=== PATIENT | female | born 1955 | race Caucasian/White ===

== ENCOUNTER → 2020-07-07 | Outpatient (CLI) | payer BC, MEDICARE ==
[~2020-07-07] MED LIST: BUPR-168 PO; FLUT1DIS27 IH; GABA-488 PO; MELO15TA39 PO; TIOT18CA2 IH
--- NOTE | 2020-07-07 15:08 | Diagnostic Imaging Report ---
PROCEDURE: CT abdomen with contrast only. TECHNIQUE: Multiple contiguous axial images were obtained through the abdomen after the administration of intravenous contrast. Auto Exposure Controls were utilized during the CT exam to meet ALARA standards for radiation dose reduction. INDICATION: The patient reportedly has an abnormal outside study, not specified. No prior imaging is available for comparison. Imaging through the lung bases does show some linear scarring or atelectasis in the left lower lobe. The liver is upper limits of normal in size with the right lobe measuring approximately 17.4 cm. No discrete liver mass is detected. Gallbladder is unremarkable. There is no biliary ductal dilatation. The pancreas and spleen are unremarkable. Right adrenal gland is unremarkable. There is a mass involving the left adrenal gland measuring 4 cm in size. This is a mixed density with areas of low and high density as well as a potential calcification. The true adrenal washout cannot be obtained due to absence of precontrast imaging. The kidneys are unremarkable. No calculi are seen. There is no hydronephrosis. Aorta is calcified but nonaneurysmal. No central, retroperitoneal or mesenteric lymphadenopathy is seen. Small and large bowel loops are normal caliber. IMPRESSION: Mixed density mass in the left adrenal gland 4 cm in size. This could potentially represent adrenal adenoma however precontrast imaging was not performed. Either MRI of the abdomen utilizing adrenal protocol, a repeat CT with and without IV contrast or a follow-up CT in 6 months for stability could be obtained. Dictated by: Dictated on workstation # [id number]
== END ==
LOC: RAD 13:45
PROVIDERS: ATTEND Internal Medicine
DX: R93.5 Abnormal findings on diagnostic imaging of other abdominal regions, including retroperitoneum (principal)
CPT/HCPCS: 74160

== ENCOUNTER → 2020-08-08 | Outpatient (CLI) | payer MEDICARE | LOC: LABNPT 08:09 | PROVIDERS: ATTEND Orthopaedic Surgery | DX: Z20.822 Contact with and (suspected) exposure to COVID-19 (principal) | CPT/HCPCS: 87635 ==

== ENCOUNTER 2020-10-30 08:02 | Outpatient (RCR) | payer MEDICARE, OTHER ==
[2020-09-28] MEDS: DAPTOMYCIN IV SCH (13:42)
[2020-09-28] MEDS: ERTAPENEM 1 GM/NS 50 ML IVPB IV SCH ×2 (13:42)
[2020-09-28] MEDS: NS IV SCH (13:42)
[2020-09-28 13:56] VITALS: BP 122/78
[2020-09-29 09:28] VITALS: BP 123/80
[2020-09-29] MEDS: ERTAPENEM 1 GM/NS 50 ML IVPB IV SCH ×2 (09:55)
[2020-09-29] MEDS: NS IV SCH (09:55)
[2020-09-29] MEDS: DAPTOMYCIN IV SCH (09:55)
[2020-09-30] MEDS: DAPTOMYCIN IV SCH (08:49)
[2020-09-30] MEDS: NS IV SCH (08:49)
[2020-09-30] MEDS: ERTAPENEM 1 GM/NS 50 ML IVPB IV SCH ×2 (08:49)
[2020-09-30 09:20] VITALS: BP 133/88
[2020-10-01] MEDS: ERTAPENEM 1 GM/NS 50 ML IVPB IV SCH ×2 (08:33)
[2020-10-01] MEDS: DAPTOMYCIN IV SCH (08:33)
[2020-10-01] MEDS: NS IV SCH (08:33)
[2020-10-01 08:56] LABS: BASOPHILS % (AUTO) 0 % (0-10); EOSINOPHILS # (AUTO) 0.2 10^3/uL (0.0-0.3); EOSINOPHILS % (AUTO) 2 % (0-10); HEMATOCRIT 32 % (35-52); HEMOGLOBIN 9.8 g/dL (11.5-16.0); LYMPHOCYTES # (AUTO) 1.3 10^3/uL (1.0-4.0); LYMPHOCYTES % (AUTO) 13 % (12-44); MEAN CORPUSCULAR HEMOGLOBIN 30 pg (25-34); MEAN CORPUSCULAR HGB CONC 31 g/dL (32-36); MEAN CORPUSCULAR VOLUME 96 fL (80-99); MEAN PLATELET VOLUME 8.3 fL (9.0-12.2); MONOCYTES # (AUTO) 1.1 10^3/uL (0.0-1.0); MONOCYTES % (AUTO) 12 % (0-12); NEUTROPHILS # (AUTO) 6.9 10^3/uL (1.8-7.8); NEUTROPHILS % (AUTO) 72 % (42-75); PLATELET COUNT 537 10^3/uL (130-400); WHITE BLOOD COUNT 9.5 10^3/uL (4.3-11.0)
[2020-10-01 09:09] LABS: ALBUMIN 3.5 GM/DL (3.2-4.5); CHLORIDE 103 MMOL/L (98-107); POTASSIUM 3.6 MMOL/L (3.6-5.0); SODIUM 139 MMOL/L (135-145)
[2020-10-01 09:10] VITALS: BP 149/84
[2020-10-01 09:10] LABS: CALCIUM 9.3 MG/DL (8.5-10.1)
[2020-10-01 09:11] LABS: GLUCOSE 110 MG/DL (70-105); TOTAL PROTEIN 6.8 GM/DL (6.4-8.2)
[2020-10-01 09:12] LABS: CARBON DIOXIDE 27 MMOL/L (21-32)
[2020-10-01 09:13] LABS: BILIRUBIN,TOTAL 0.3 MG/DL (0.1-1.0)
[2020-10-01 09:15] LABS: ALKALINE PHOSPHATASE 104 U/L (40-136); CREATININE SERUM 0.59 MG/DL (0.60-1.30); GFR ESTIMATED > 60
[2020-10-01 09:16] LABS: BUN/CREATININE RATIO 19
[2020-10-01 09:18] LABS: ALANINE AMINOTRANSFERASE 12 U/L (0-55); CREATINE KINASE 31 U/L (29-168)
[2020-10-02 08:20] VITALS: BP 125/87
[2020-10-02] MEDS: DAPTOMYCIN IV SCH (08:44)
[2020-10-02] MEDS: NS IV SCH (08:44)
[2020-10-02] MEDS: ERTAPENEM 1 GM/NS 50 ML IVPB IV SCH ×2 (08:44)
[2020-10-03] MEDS: DAPTOMYCIN IV SCH (09:05)
[2020-10-03] MEDS: NS IV SCH (09:05)
[2020-10-03] MEDS: ERTAPENEM 1 GM/NS 50 ML IVPB IV SCH ×2 (09:05)
[2020-10-03 09:11] VITALS: BP 129/77
[2020-10-04] MEDS: DAPTOMYCIN IV SCH (08:45)
[2020-10-04] MEDS: NS IV SCH (08:45)
[2020-10-04] MEDS: ERTAPENEM 1 GM/NS 50 ML IVPB IV SCH ×2 (08:45)
[2020-10-04 09:18] VITALS: BP 117/64
[2020-10-05] MEDS: ERTAPENEM 1 GM/NS 50 ML IVPB IV SCH ×2 (08:45)
[2020-10-05] MEDS: DAPTOMYCIN IV SCH (08:45)
[2020-10-05] MEDS: NS IV SCH (08:45)
[2020-10-05 09:35] VITALS: BP 100/68
[2020-10-06] MEDS: ERTAPENEM 1 GM/NS 50 ML IVPB IV SCH ×2 (08:20)
[2020-10-06] MEDS: NS IV SCH (08:45)
[2020-10-06] MEDS: DAPTOMYCIN IV SCH (08:45)
[2020-10-06 09:06] VITALS: BP 111/67
[2020-10-07 08:30] VITALS: BP 116/84
[2020-10-07] MEDS: NS IV SCH (08:50)
[2020-10-07] MEDS: DAPTOMYCIN IV SCH (08:50)
[2020-10-07] MEDS: ERTAPENEM 1 GM/NS 50 ML IVPB IV SCH ×2 (08:50)
[2020-10-08 08:40] LABS: BASOPHILS % (AUTO) 0 % (0-10); EOSINOPHILS # (AUTO) 0.2 10^3/uL (0.0-0.3); EOSINOPHILS % (AUTO) 3 % (0-10); HEMATOCRIT 31 % (35-52); HEMOGLOBIN 9.5 g/dL (11.5-16.0); LYMPHOCYTES # (AUTO) 1.3 10^3/uL (1.0-4.0); LYMPHOCYTES % (AUTO) 18 % (12-44); MEAN CORPUSCULAR HEMOGLOBIN 29 pg (25-34); MEAN CORPUSCULAR HGB CONC 31 g/dL (32-36); MEAN CORPUSCULAR VOLUME 94 fL (80-99); MEAN PLATELET VOLUME 8.3 fL (9.0-12.2); MONOCYTES % (AUTO) 14 % (0-12); NEUTROPHILS # (AUTO) 4.8 10^3/uL (1.8-7.8); NEUTROPHILS % (AUTO) 65 % (42-75); PLATELET COUNT 446 10^3/uL (130-400); WHITE BLOOD COUNT 7.4 10^3/uL (4.3-11.0)
[2020-10-08 08:53] LABS: ALANINE AMINOTRANSFERASE 8 U/L (0-55); ALBUMIN 3.4 GM/DL (3.2-4.5); ALKALINE PHOSPHATASE 91 U/L (40-136); BILIRUBIN,TOTAL 0.2 MG/DL (0.1-1.0); BUN/CREATININE RATIO 28; CALCIUM 9.4 MG/DL (8.5-10.1); CARBON DIOXIDE 27 MMOL/L (21-32); CHLORIDE 104 MMOL/L (98-107); CREATINE KINASE 49 U/L (29-168); CREATININE SERUM 0.64 MG/DL (0.60-1.30); GFR ESTIMATED > 60; GLUCOSE 105 MG/DL (70-105); POTASSIUM 3.7 MMOL/L (3.6-5.0); SODIUM 140 MMOL/L (135-145); TOTAL PROTEIN 6.5 GM/DL (6.4-8.2)
[2020-10-08] MEDS: DAPTOMYCIN IV SCH (09:15)
[2020-10-08] MEDS: NS IV SCH (09:15)
[2020-10-08] MEDS: ERTAPENEM 1 GM/NS 50 ML IVPB IV SCH ×2 (09:15)
[2020-10-08 09:30] VITALS: BP 126/79
[2020-10-09] MEDS: NS IV SCH (08:59)
[2020-10-09] MEDS: DAPTOMYCIN IV SCH (08:59)
[2020-10-09] MEDS: ERTAPENEM 1 GM/NS 50 ML IVPB IV SCH ×2 (08:59)
[2020-10-09 09:19] VITALS: BP 133/68
[2020-10-10 09:00] VITALS: BP 114/62
[2020-10-11] MEDS: ERTAPENEM 1 GM/NS 50 ML IVPB IV SCH ×2 (09:22)
[2020-10-11] MEDS: DAPTOMYCIN IV SCH (09:22)
[2020-10-11] MEDS: NS IV SCH (09:22)
[2020-10-11 10:43] VITALS: BP 100/56
[2020-10-12] MEDS: ERTAPENEM 1 GM/NS 50 ML IVPB IV SCH ×2 (09:17)
[2020-10-12] MEDS: DAPTOMYCIN IV SCH (09:17)
[2020-10-12] MEDS: NS IV SCH (09:17)
[2020-10-13] MEDS: NS IV SCH (09:26)
[2020-10-13] MEDS: DAPTOMYCIN IV SCH (09:26)
[2020-10-13] MEDS: ERTAPENEM 1 GM/NS 50 ML IVPB IV SCH ×2 (09:26)
[2020-10-14] MEDS: ERTAPENEM 1 GM/NS 50 ML IVPB IV SCH ×2 (15:24)
[2020-10-14] MEDS: NS IV SCH (15:25)
[2020-10-14] MEDS: DAPTOMYCIN IV SCH (15:25)
[2020-10-14 15:54] VITALS: BP 126/98
[2020-10-15 10:45] VITALS: BP 107/69
[2020-10-15] MEDS: DAPTOMYCIN IV SCH (11:05)
[2020-10-15] MEDS: ERTAPENEM 1 GM/NS 50 ML IVPB IV SCH ×2 (11:05)
[2020-10-15] MEDS: NS IV SCH (11:05)
[2020-10-16] MEDS: NS IV SCH (08:59)
[2020-10-16] MEDS: ERTAPENEM 1 GM/NS 50 ML IVPB IV SCH ×2 (08:59)
[2020-10-16] MEDS: DAPTOMYCIN IV SCH (08:59)
[2020-10-16 09:35] VITALS: BP 109/77
[2020-10-16 13:08] LABS: BASOPHILS % (AUTO) 0 % (0-10); EOSINOPHILS # (AUTO) 0.4 10^3/uL (0.0-0.3); EOSINOPHILS % (AUTO) 4 % (0-10); HEMATOCRIT 33 % (35-52); HEMOGLOBIN 10.4 g/dL (11.5-16.0); LYMPHOCYTES # (AUTO) 1.7 10^3/uL (1.0-4.0); LYMPHOCYTES % (AUTO) 17 % (12-44); MEAN CORPUSCULAR HEMOGLOBIN 29 pg (25-34); MEAN CORPUSCULAR HGB CONC 32 g/dL (32-36); MEAN CORPUSCULAR VOLUME 92 fL (80-99); MEAN PLATELET VOLUME 8.4 fL (9.0-12.2); MONOCYTES # (AUTO) 1.2 10^3/uL (0.0-1.0); MONOCYTES % (AUTO) 12 % (0-12); NEUTROPHILS # (AUTO) 6.7 10^3/uL (1.8-7.8); NEUTROPHILS % (AUTO) 66 % (42-75); PLATELET COUNT 523 10^3/uL (130-400); WHITE BLOOD COUNT 10.1 10^3/uL (4.3-11.0)
[2020-10-16 13:22] LABS: ALBUMIN 3.7 GM/DL (3.2-4.5)
[2020-10-16 13:23] LABS: CHLORIDE 103 MMOL/L (98-107); SODIUM 139 MMOL/L (135-145)
[2020-10-16 13:24] LABS: CALCIUM 9.6 MG/DL (8.5-10.1)
[2020-10-16 13:25] LABS: GLUCOSE 89 MG/DL (70-105); TOTAL PROTEIN 6.8 GM/DL (6.4-8.2)
[2020-10-16 13:26] LABS: CARBON DIOXIDE 25 MMOL/L (21-32)
[2020-10-16 13:27] LABS: BILIRUBIN,TOTAL 0.2 MG/DL (0.1-1.0)
[2020-10-16 13:28] LABS: ALKALINE PHOSPHATASE 89 U/L (40-136)
[2020-10-16 13:29] LABS: CREATININE SERUM 0.64 MG/DL (0.60-1.30); GFR ESTIMATED > 60
[2020-10-16 13:30] LABS: BUN/CREATININE RATIO 22
[2020-10-16 13:32] LABS: ALANINE AMINOTRANSFERASE 9 U/L (0-55); CREATINE KINASE 90 U/L (29-168)
[2020-10-17 09:22] VITALS: BP 123/99
[2020-10-17] MEDS: DAPTOMYCIN IV SCH (09:22)
[2020-10-17] MEDS: ERTAPENEM 1 GM/NS 50 ML IVPB IV SCH ×2 (09:22)
[2020-10-17] MEDS: NS IV SCH (09:22)
[2020-10-18] MEDS: ERTAPENEM 1 GM/NS 50 ML IVPB IV SCH ×2 (08:45)
[2020-10-18] MEDS: DAPTOMYCIN IV SCH (08:45)
[2020-10-18] MEDS: NS IV SCH (08:45)
[2020-10-18 09:20] VITALS: BP 129/97
[2020-10-19] MEDS: NS IV SCH (08:47)
[2020-10-19] MEDS: DAPTOMYCIN IV SCH (08:47)
[2020-10-19] MEDS: ERTAPENEM 1 GM/NS 50 ML IVPB IV SCH ×2 (08:50)
[2020-10-19 09:24] VITALS: BP 120/78
[2020-10-20] MEDS: NS IV SCH (08:37)
[2020-10-20] MEDS: DAPTOMYCIN IV SCH (08:37)
[2020-10-20] MEDS: ERTAPENEM 1 GM/NS 50 ML IVPB IV SCH ×2 (08:38)
[2020-10-20 09:22] VITALS: BP 118/80
[2020-10-21] MEDS: NS IV SCH (09:16)
[2020-10-21] MEDS: DAPTOMYCIN IV SCH (09:16)
[2020-10-21] MEDS: ERTAPENEM 1 GM/NS 50 ML IVPB IV SCH ×2 (09:17)
[2020-10-21 09:25] VITALS: BP 119/73
[2020-10-22 08:43] LABS: BASOPHILS # (AUTO) 0.1 10^3/uL (0.0-0.1); BASOPHILS % (AUTO) 1 % (0-10); EOSINOPHILS # (AUTO) 0.2 10^3/uL (0.0-0.3); EOSINOPHILS % (AUTO) 2 % (0-10); HEMATOCRIT 33 % (35-52); HEMOGLOBIN 10.1 g/dL (11.5-16.0); LYMPHOCYTES # (AUTO) 1.5 10^3/uL (1.0-4.0); LYMPHOCYTES % (AUTO) 19 % (12-44); MEAN CORPUSCULAR HEMOGLOBIN 28 pg (25-34); MEAN CORPUSCULAR HGB CONC 31 g/dL (32-36); MEAN CORPUSCULAR VOLUME 92 fL (80-99); MEAN PLATELET VOLUME 8.3 fL (9.0-12.2); MONOCYTES # (AUTO) 0.9 10^3/uL (0.0-1.0); MONOCYTES % (AUTO) 12 % (0-12); NEUTROPHILS % (AUTO) 65 % (42-75); PLATELET COUNT 510 10^3/uL (130-400); WHITE BLOOD COUNT 7.6 10^3/uL (4.3-11.0)
[2020-10-22] MEDS: NS IV SCH (08:47)
[2020-10-22] MEDS: ERTAPENEM 1 GM/NS 50 ML IVPB IV SCH ×2 (08:47)
[2020-10-22] MEDS: DAPTOMYCIN IV SCH (08:47)
[2020-10-22 09:01] LABS: ALANINE AMINOTRANSFERASE 11 U/L (0-55); ALBUMIN 3.6 GM/DL (3.2-4.5); ALKALINE PHOSPHATASE 87 U/L (40-136); BILIRUBIN,TOTAL 0.2 MG/DL (0.1-1.0); BUN/CREATININE RATIO 26; CALCIUM 9.6 MG/DL (8.5-10.1); CARBON DIOXIDE 25 MMOL/L (21-32); CHLORIDE 104 MMOL/L (98-107); CREATINE KINASE 87 U/L (29-168); CREATININE SERUM 0.66 MG/DL (0.60-1.30); GFR ESTIMATED > 60; GLUCOSE 101 MG/DL (70-105); POTASSIUM 4.1 MMOL/L (3.6-5.0); SODIUM 138 MMOL/L (135-145); TOTAL PROTEIN 6.9 GM/DL (6.4-8.2)
[2020-10-22 09:20] VITALS: BP 127/75
[2020-10-23] MEDS: DAPTOMYCIN IV SCH (08:24)
[2020-10-23] MEDS: NS IV SCH (08:24)
[2020-10-23] MEDS: ERTAPENEM 1 GM/NS 50 ML IVPB IV SCH ×2 (08:24)
[2020-10-23 09:00] VITALS: BP 113/63
[2020-10-24] MEDS: DAPTOMYCIN IV SCH (08:30)
[2020-10-24] MEDS: ERTAPENEM 1 GM/NS 50 ML IVPB IV SCH ×2 (08:30)
[2020-10-24] MEDS: NS IV SCH (08:30)
[2020-10-24 08:32] VITALS: BP 100/66
[2020-10-25 09:15] VITALS: BP 101/78
[2020-10-25] MEDS: ERTAPENEM 1 GM/NS 50 ML IVPB IV SCH ×2 (09:46)
[2020-10-25] MEDS: DAPTOMYCIN IV SCH (09:46)
[2020-10-25] MEDS: NS IV SCH (09:46)
[2020-10-26] MEDS: DAPTOMYCIN IV SCH (09:22)
[2020-10-26] MEDS: NS IV SCH (09:22)
[2020-10-26] MEDS: ERTAPENEM 1 GM/NS 50 ML IVPB IV SCH ×2 (09:23)
[2020-10-26 09:30] VITALS: BP 111/76
[2020-10-27] MEDS: NS IV SCH (08:12)
[2020-10-27] MEDS: ERTAPENEM 1 GM/NS 50 ML IVPB IV SCH ×2 (08:12)
[2020-10-27] MEDS: DAPTOMYCIN IV SCH (08:12)
[2020-10-27 08:43] VITALS: BP 133/82
[2020-10-28] MEDS: NS IV SCH (08:13)
[2020-10-28] MEDS: DAPTOMYCIN IV SCH (08:13)
[2020-10-28] MEDS: ERTAPENEM 1 GM/NS 50 ML IVPB IV SCH ×2 (08:14)
[2020-10-28 09:05] VITALS: BP 120/77
[2020-10-29] MEDS: ERTAPENEM 1 GM/NS 50 ML IVPB IV SCH ×2 (08:43)
[2020-10-29] MEDS: NS IV SCH (08:43)
[2020-10-29] MEDS: DAPTOMYCIN IV SCH (08:43)
[2020-10-29 08:48] LABS: BASOPHILS % (AUTO) 0 % (0-10); EOSINOPHILS # (AUTO) 0.2 10^3/uL (0.0-0.3); EOSINOPHILS % (AUTO) 3 % (0-10); HEMATOCRIT 33 % (35-52); HEMOGLOBIN 10.3 g/dL (11.5-16.0); LYMPHOCYTES # (AUTO) 1.4 10^3/uL (1.0-4.0); LYMPHOCYTES % (AUTO) 18 % (12-44); MEAN CORPUSCULAR HEMOGLOBIN 29 pg (25-34); MEAN CORPUSCULAR HGB CONC 31 g/dL (32-36); MEAN CORPUSCULAR VOLUME 91 fL (80-99); MEAN PLATELET VOLUME 8.3 fL (9.0-12.2); MONOCYTES # (AUTO) 0.9 10^3/uL (0.0-1.0); MONOCYTES % (AUTO) 11 % (0-12); NEUTROPHILS # (AUTO) 5.1 10^3/uL (1.8-7.8); NEUTROPHILS % (AUTO) 67 % (42-75); PLATELET COUNT 445 10^3/uL (130-400); WHITE BLOOD COUNT 7.6 10^3/uL (4.3-11.0)
[2020-10-29 08:54] VITALS: BP 127/70
[2020-10-29 09:04] LABS: ALANINE AMINOTRANSFERASE 10 U/L (0-55); ALBUMIN 3.6 GM/DL (3.2-4.5); ALKALINE PHOSPHATASE 77 U/L (40-136); BILIRUBIN,TOTAL 0.2 MG/DL (0.1-1.0); BUN/CREATININE RATIO 32; CALCIUM 9.4 MG/DL (8.5-10.1); CARBON DIOXIDE 24 MMOL/L (21-32); CHLORIDE 105 MMOL/L (98-107); CREATINE KINASE 81 U/L (29-168); CREATININE SERUM 0.62 MG/DL (0.60-1.30); GFR ESTIMATED > 60; GLUCOSE 100 MG/DL (70-105); POTASSIUM 3.9 MMOL/L (3.6-5.0); SODIUM 139 MMOL/L (135-145); TOTAL PROTEIN 6.8 GM/DL (6.4-8.2)
[~2020-10-30] VITALS: Ht 162.6 cm; Wt 87.7 kg
[2020-10-30] MEDS: DAPTOMYCIN IV SCH (08:27)
[2020-10-30] MEDS: NS IV SCH (08:27)
[2020-10-30] MEDS: ERTAPENEM 1 GM/NS 50 ML IVPB IV SCH ×2 (08:27)
[2020-10-30 09:12] VITALS: BP 125/67
== END 2020-10-30 09:12 | disposition home or self-care (01) ==
LOC: SDC 08:02
PROVIDERS: ATTEND Nurse Practitioner Family
DX: T81.30XA Disruption of wound, unspecified, initial encounter (principal)
CPT/HCPCS: 36415; 80053; 82550; 85025; 93005; 96365; 96367; 96368; 99211

== ENCOUNTER 2020-11-19 09:07 | Outpatient (RCR) | payer MEDICARE, OTHER ==
[2020-11-19 09:27] LABS: BASOPHILS % (AUTO) 0 % (0-10); EOSINOPHILS # (AUTO) 0.1 10^3/uL (0.0-0.3); EOSINOPHILS % (AUTO) 2 % (0-10); HEMATOCRIT 38 % (35-52); HEMOGLOBIN 11.6 g/dL (11.5-16.0); LYMPHOCYTES # (AUTO) 1.3 10^3/uL (1.0-4.0); LYMPHOCYTES % (AUTO) 15 % (12-44); MEAN CORPUSCULAR HEMOGLOBIN 28 pg (25-34); MEAN CORPUSCULAR HGB CONC 31 g/dL (32-36); MEAN CORPUSCULAR VOLUME 92 fL (80-99); MEAN PLATELET VOLUME 8.5 fL (9.0-12.2); MONOCYTES # (AUTO) 0.9 10^3/uL (0.0-1.0); MONOCYTES % (AUTO) 11 % (0-12); NEUTROPHILS # (AUTO) 6.3 10^3/uL (1.8-7.8); NEUTROPHILS % (AUTO) 72 % (42-75); PLATELET COUNT 405 10^3/uL (130-400); WHITE BLOOD COUNT 8.8 10^3/uL (4.3-11.0)
[2020-11-19 09:48] LABS: ALANINE AMINOTRANSFERASE 16 U/L (0-55); ALBUMIN 3.9 GM/DL (3.2-4.5); ALKALINE PHOSPHATASE 74 U/L (40-136); BILIRUBIN,TOTAL 0.3 MG/DL (0.1-1.0); BUN/CREATININE RATIO 28; CALCIUM 9.6 MG/DL (8.5-10.1); CARBON DIOXIDE 26 MMOL/L (21-32); CHLORIDE 103 MMOL/L (98-107); CREATININE SERUM 0.64 MG/DL (0.60-1.30); GFR ESTIMATED > 60; GLUCOSE 105 MG/DL (70-105); POTASSIUM 4.4 MMOL/L (3.6-5.0); SODIUM 137 MMOL/L (135-145)
[2020-11-19 09:53] LABS: ERYTHROCYTE SEDIMENTATION RATE 33 MM/HR (0-30)
== END 2021-02-17 | disposition home or self-care (01) ==
LOC: CARD 09:07
PROVIDERS: ATTEND Internal Medicine Infectious Disease
DX: T81.30XA Disruption of wound, unspecified, initial encounter (principal); Z79.899 Other long term (current) drug therapy
CPT/HCPCS: 36415; 80053; 85025; 85652; 86141; 93005

== ENCOUNTER → 2020-11-26 | Outpatient (CLI) | payer MEDICARE, OTHER ==
[2020-11-26 11:22] LABS: BASOPHILS % (AUTO) 1 % (0-10); EOSINOPHILS # (AUTO) 0.1 10^3/uL (0.0-0.3); EOSINOPHILS % (AUTO) 2 % (0-10); HEMATOCRIT 38 % (35-52); HEMOGLOBIN 12.1 g/dL (11.5-16.0); LYMPHOCYTES # (AUTO) 1.4 X 10^3 (1.0-4.0); LYMPHOCYTES % (AUTO) 15 % (12-44); MEAN CORPUSCULAR HEMOGLOBIN 29 pg (25-34); MEAN CORPUSCULAR HGB CONC 32 g/dL (32-36); MEAN CORPUSCULAR VOLUME 92 fL (80-99); MEAN PLATELET VOLUME 8.6 fL (9.0-12.2); MONOCYTES # (AUTO) 0.8 X 10^3 (0.0-1.0); MONOCYTES % (AUTO) 9 % (0-12); NEUTROPHILS # (AUTO) 6.5 X 10^3 (1.8-7.8); NEUTROPHILS % (AUTO) 73 % (42-75); PLATELET COUNT 413 10^3/uL (130-400); WHITE BLOOD COUNT 8.8 10^3/uL (4.3-11.0)
[2020-11-26 11:49] LABS: ERYTHROCYTE SEDIMENTATION RATE 36 MM/HR (0-30)
[2020-11-26 11:51] LABS: ALANINE AMINOTRANSFERASE 14 U/L (0-55); ALBUMIN 4.1 GM/DL (3.2-4.5); ALKALINE PHOSPHATASE 69 U/L (40-136); BILIRUBIN,TOTAL 0.3 MG/DL (0.1-1.0); BUN/CREATININE RATIO 26; CALCIUM 9.4 MG/DL (8.5-10.1); CARBON DIOXIDE 24 MMOL/L (21-32); CHLORIDE 105 MMOL/L (98-107); CREATININE SERUM 0.76 MG/DL (0.60-1.30); GFR ESTIMATED > 60; GLUCOSE 103 MG/DL (70-105); SODIUM 138 MMOL/L (135-145); TOTAL PROTEIN 7.3 GM/DL (6.4-8.2)
== END ==
LOC: RAD 10:57
PROVIDERS: ATTEND Internal Medicine Infectious Disease
DX: T81.30XA Disruption of wound, unspecified, initial encounter (principal); Z79.899 Other long term (current) drug therapy
CPT/HCPCS: 36415; 80053; 85025; 85652; 86141; 93005

== ENCOUNTER → 2020-12-29 | Outpatient (CLI) | payer MEDICARE, OTHER ==
[2020-12-29 13:18] LABS: BASOPHILS % (AUTO) 0 % (0-10); EOSINOPHILS # (AUTO) 0.1 10^3/uL (0.0-0.3); EOSINOPHILS % (AUTO) 2 % (0-10); HEMATOCRIT 40 % (35-52); HEMOGLOBIN 12.7 g/dL (11.5-16.0); LYMPHOCYTES # (AUTO) 2.1 10^3/uL (1.0-4.0); LYMPHOCYTES % (AUTO) 24 % (12-44); MEAN CORPUSCULAR HEMOGLOBIN 30 pg (25-34); MEAN CORPUSCULAR HGB CONC 32 g/dL (32-36); MEAN CORPUSCULAR VOLUME 92 fL (80-99); MEAN PLATELET VOLUME 8.7 fL (9.0-12.2); MONOCYTES # (AUTO) 0.8 10^3/uL (0.0-1.0); MONOCYTES % (AUTO) 10 % (0-12); NEUTROPHILS # (AUTO) 5.4 10^3/uL (1.8-7.8); NEUTROPHILS % (AUTO) 64 % (42-75); PLATELET COUNT 379 10^3/uL (130-400); WHITE BLOOD COUNT 8.5 10^3/uL (4.3-11.0)
[2020-12-29 13:26] LABS: ALBUMIN 4.1 GM/DL (3.2-4.5); POTASSIUM 3.9 MMOL/L (3.6-5.0)
[2020-12-29 13:28] LABS: CALCIUM 9.9 MG/DL (8.5-10.1)
[2020-12-29 13:29] LABS: TOTAL PROTEIN 7.2 GM/DL (6.4-8.2)
[2020-12-29 13:31] LABS: BILIRUBIN,TOTAL 0.4 MG/DL (0.1-1.0)
[2020-12-29 13:33] LABS: CREATININE SERUM 0.65 MG/DL (0.60-1.30)
[2020-12-29 13:52] LABS: ERYTHROCYTE SEDIMENTATION RATE 37 MM/HR (0-30)
== END ==
LOC: CARD 13:00
PROVIDERS: ATTEND Internal Medicine Infectious Disease
DX: T81.30XA Disruption of wound, unspecified, initial encounter (principal); Z79.899 Other long term (current) drug therapy
CPT/HCPCS: 36415; 80053; 85025; 85652; 86141; 93005

== ENCOUNTER → 2021-02-02 | Outpatient (CLI) | payer MEDICARE, OTHER ==
[2021-02-02 10:33] LABS: BASOPHILS % (AUTO) 1 % (0-10); EOSINOPHILS # (AUTO) 0.2 10^3/uL (0.0-0.3); EOSINOPHILS % (AUTO) 2 % (0-10); HEMATOCRIT 38 % (35-52); HEMOGLOBIN 12.4 g/dL (11.5-16.0); LYMPHOCYTES # (AUTO) 1.5 10^3/uL (1.0-4.0); LYMPHOCYTES % (AUTO) 18 % (12-44); MEAN CORPUSCULAR HEMOGLOBIN 31 pg (25-34); MEAN CORPUSCULAR HGB CONC 33 g/dL (32-36); MEAN CORPUSCULAR VOLUME 94 fL (80-99); MEAN PLATELET VOLUME 8.6 fL (9.0-12.2); MONOCYTES # (AUTO) 0.8 10^3/uL (0.0-1.0); MONOCYTES % (AUTO) 10 % (0-12); NEUTROPHILS # (AUTO) 5.6 10^3/uL (1.8-7.8); NEUTROPHILS % (AUTO) 69 % (42-75); PLATELET COUNT 319 10^3/uL (130-400); WHITE BLOOD COUNT 8.2 10^3/uL (4.3-11.0)
[2021-02-02 10:44] LABS: CALCIUM 9.4 MG/DL (8.5-10.1)
[2021-02-02 10:45] LABS: TOTAL PROTEIN 6.8 GM/DL (6.4-8.2)
[2021-02-02 10:47] LABS: BILIRUBIN,TOTAL 0.3 MG/DL (0.1-1.0)
[2021-02-02 10:49] LABS: CREATININE SERUM 0.75 MG/DL (0.60-1.30)
[2021-02-02 11:13] LABS: ERYTHROCYTE SEDIMENTATION RATE 28 MM/HR (0-30)
== END ==
LOC: RAD 10:06
PROVIDERS: ATTEND Internal Medicine Infectious Disease
DX: T81.30XA Disruption of wound, unspecified, initial encounter (principal); Z79.899 Other long term (current) drug therapy
CPT/HCPCS: 36415; 80053; 85025; 85027; 85652; 86141; 93005

== ENCOUNTER 2021-03-05 12:40 | Outpatient (RCR) | payer MEDICARE, OTHER ==
[2021-03-05 12:42] LABS: BASOPHILS % (AUTO) 0 % (0-10); EOSINOPHILS # (AUTO) 0.2 10^3/uL (0.0-0.3); EOSINOPHILS % (AUTO) 2 % (0-10); HEMATOCRIT 42 % (35-52); HEMOGLOBIN 13.7 g/dL (11.5-16.0); LYMPHOCYTES # (AUTO) 2.1 10^3/uL (1.0-4.0); LYMPHOCYTES % (AUTO) 25 % (12-44); MEAN CORPUSCULAR HEMOGLOBIN 31 pg (25-34); MEAN CORPUSCULAR HGB CONC 33 g/dL (32-36); MEAN CORPUSCULAR VOLUME 95 fL (80-99); MEAN PLATELET VOLUME 8.4 fL (9.0-12.2); MONOCYTES # (AUTO) 0.7 10^3/uL (0.0-1.0); MONOCYTES % (AUTO) 8 % (0-12); NEUTROPHILS # (AUTO) 5.3 10^3/uL (1.8-7.8); NEUTROPHILS % (AUTO) 65 % (42-75); PLATELET COUNT 349 10^3/uL (130-400); WHITE BLOOD COUNT 8.3 10^3/uL (4.3-11.0)
[2021-03-05 12:56] LABS: ALBUMIN 4.1 GM/DL (3.2-4.5); POTASSIUM 3.8 MMOL/L (3.6-5.0)
[2021-03-05 12:57] LABS: CALCIUM 9.8 MG/DL (8.5-10.1)
[2021-03-05 13:00] LABS: BILIRUBIN,TOTAL 0.4 MG/DL (0.1-1.0)
[2021-03-05 13:02] LABS: CREATININE SERUM 0.64 MG/DL (0.60-1.30)
[2021-03-05 13:04] LABS: ERYTHROCYTE SEDIMENTATION RATE 11 MM/HR (0-30)
== END 2021-05-15 | disposition home or self-care (01) ==
LOC: CARD 12:40
PROVIDERS: ATTEND Internal Medicine Infectious Disease
DX: T81.30XA Disruption of wound, unspecified, initial encounter (principal); Z79.899 Other long term (current) drug therapy
CPT/HCPCS: 36415; 80053; 85025; 85652; 86141; 93005

== ENCOUNTER 2021-03-23 07:38 | Emergency (ER) | payer MEDICARE, OTHER ==
[~2021-03-23] VITALS: Ht 160 cm; Wt 90.0 kg
--- NOTE | 2021-03-23 07:58 | ED General ---
General Stated Complaint: DIZZINESS Source of Information: Patient Exam Limitations: No Limitations History of Present Illness Date Seen by Provider: Mar 23, 2021 Time Seen by Provider: 07:43 Initial Comments Patient is a 65-year-old female who presents to the emergency department today with a chief complaint of feeling "dizzy". Patient states that she woke up at some point during the middle of the night and realized that she was very dizzy and was concerned she might fall. She states symptoms persisted throughout the morning and she called the ambulance to bring her to the hospital. Patient is status post fairly recent back surgery at and developed a deep wound infection afterwards and is on 3 "powerful" antibiotics per infectious disease from . Patient states she has been battling some diarrhea in recent weeks as well as developed oral thrush last week. She is currently on nystatin. Patient states the thrush is improved and now that she is taking her probiotics her diarrhea is improved. Patient states she was tested for C. difficile and was negative. She denies any black or bloody stools. No fevers, chills, cough or congestion or Covid concerns. She has no history of cardiac abnormalities. She did have a "cardiac clearance" prior to her back surgery. She is not nauseous and states that she has minimal headache at this point. She states her symptoms are predominantly occurring when she sits up and gets up. No urinary complaints. All other review of systems reviewed and negative except as stated. Timing/Duration: 12-24 Hours Severity: Moderate Modifying Factors: worse with Movement Associated Systoms: Nausea/Vomiting (mild nausea with dizziness) Allergies and Home Medications Allergies Coded Allergies: tramadol (Verified Allergy, Mild, Vomiting, 10/18/20) codeine (Verified Allergy, Unknown, 09/28/20) Patient Home Medication List Home Medication List Reviewed: Yes Bupropion HCl (Bupropion HCl) 75 Mg Tablet, 75 MG PO DAILY, (Reported) Entered as Reported by: SAVANAH VIERA on 05/09/16 0916 Fluticasone/Salmeterol (Advair 500-50 Diskus) 1 Each Blst.w.dev, 1 EACH IH BID, (Reported) Entered as Reported by: SAVANAH VIERA on 05/09/16 0914 Gabapentin (Gabapentin) 300 Mg Capsule, Unknown Dose PO TID, (Reported) Entered as Reported by: SAVANAH VIERA on 05/09/16915 Meloxicam (Meloxicam) 15 Mg Tablet, 15 MG PO DAILY, (Reported) Entered as Reported by: SAVANAH VIERA on 05/09/16915 Tiotropium [place] (Spiriva) 1 Inh Aerp, 1 INH IH BID, (Reported) Entered as Reported by: SAVANAH VIERA on 05/09/16913 Review of Systems Review of Systems Constitutional: see HPI EENTM: other (oral thrush) Respiratory: no symptoms reported Cardiovascular: no symptoms reported Gastrointestinal: diarrhea, nausea (mild) Genitourinary: no symptoms reported : No Musculoskeletal: no symptoms reported Skin: no symptoms reported Psychiatric/Neurological: Headache (mininmal); Denies Numbness, Denies Paresthesia, Denies Weakness All Other Systems Reviewed Negative Unless Noted: Yes Physical Exam Vital Signs Vital Signs - First Documented 03/23/21 07:43 Temp 36.6 Pulse 68 Resp 18 B/P (MAP) 143/76 (98) Pulse Ox 99 Capillary Refill : Height, Weight, BMI Height: 5'4" Weight: 250lbs. oz. [id number]; 33.17 BMI Method:Stated General Appearance: No Apparent Distress Eyes: Bilateral Eye Normal Inspection, Bilateral Eye PERRL, Bilateral Eye EOMI HEENT: PERRL/EOMI, TMs Normal, Other (oral thrush (left buccal mucosa)) Neck: Normal Inspection Respiratory: Lungs Clear, Normal Breath Sounds, No Accessory Muscle Use, No Respiratory Distress Cardiovascular: Regular Rate, Rhythm, No Murmur, Normal Peripheral Pulses, Extra Beats Gastrointestinal: Normal Bowel Sounds, Non Tender, Soft Extremity: Normal Inspection, Normal Range of Motion Neurologic/Psychiatric: Alert, Oriented x3, No Motor/Sensory Deficits, Normal Mood/Affect, screed person II-XII Norm as Tested; No Abnormal Cerebellar Tests, No EOM Palsy, No Facial Droop, No Motor Weakness, No Sensory Deficit; Other (no nystagmus noted) Skin: Normal Color, Warm/Dry Progress/Results/Core Measures Suspected Sepsis SIRS Temperature: Pulse: Respiratory Rate: Laboratory Tests 03/23/21 08:00: White Blood Count 5.6 Blood Pressure / Mean: Laboratory Tests 03/23/21 08:00: Creatinine 0.64, Platelet Count 318 Results/Orders Lab Results Laboratory Tests Test 03/23/21 08:00 Range/Units White Blood Count 5.6 4.3-11.0 10^3/uL Red Blood Count 4.41 3.80-5.11 10^6/uL Hemoglobin 14.0 11.5-16.0 g/dL Hematocrit 42 35-52 % Mean Corpuscular Volume 96 80-99 fL Mean Corpuscular Hemoglobin 32 25-34 pg Mean Corpuscular Hemoglobin Concent 33 32-36 g/dL Red Cell Distribution Width 13.4 10.0-14.5 % Platelet Count 318 130-400 10^3/uL Mean Platelet Volume 8.9 L 9.0-12.2 fL Immature Granulocyte % (Auto) 1 % Neutrophils (%) (Auto) 60 42-75 % Lymphocytes (%) (Auto) 25 12-44 % Monocytes (%) (Auto) 11 0-12 % Eosinophils (%) (Auto) 2 0-10 % Basophils (%) (Auto) 1 0-10 % Neutrophils # (Auto) 3.4 1.8-7.8 10^3/uL Lymphocytes # (Auto) 1.4 1.0-4.0 10^3/uL Monocytes # (Auto) 0.6 0.0-1.0 10^3/uL Eosinophils # (Auto) 0.1 0.0-0.3 10^3/uL Basophils # (Auto) 0.0 0.0-0.1 10^3/uL Immature Granulocyte # (Auto) 0.0 0.0-0.1 10^3/uL Sodium Level 138 135-145 MMOL/L Potassium Level 5.2 H 3.6-5.0 MMOL/L Chloride Level 106 98-107 MMOL/L Carbon Dioxide Level 20 L 21-32 MMOL/L Anion Gap 12 5-14 MMOL/L Blood Urea Nitrogen 20 H 7-18 MG/DL Creatinine 0.64 0.60-1.30 MG/DL Estimat Glomerular Filtration Rate 93 BUN/Creatinine Ratio 31 Glucose Level 110 H 70-105 MG/DL Calcium Level 9.3 8.5-10.1 MG/DL My Orders Orders - LASHAWN ABBASI MD Cbc With Automated Diff (03/23/21 07:52) Basic Metabolic Panel (03/23/21 07:52) Ekg Tracing (03/23/21 07:52) Ed Iv/Invasive Line Start (03/23/21 07:52) Orthostatic Vital Signs (Adult (03/23/21 07:52) Meclizine Tablet (Antivert Tablet) (03/23/21 08:15) Ns Iv 1000 Ml (Sodium Chloride 0.9%) (03/23/21 08:06) Acetaminophen Tablet (Tylenol Tablet) (03/23/21 09:15) Ns Iv 1000 Ml (Sodium Chloride 0.9%) (03/23/21 09:15) Medications Given in ED Current Medications Medications Dose Ordered Sig/Ivy Route Start Time Stop Time Status Last Admin Dose Admin Acetaminophen 1,000 mg ONCE ONCE PO 03/23/21 09:15 03/23/21 09:16 DC 03/23/21 09:08 1,000 MG Meclizine HCl 25 mg ONCE ONCE PO 03/23/21 08:15 03/23/21 08:16 DC 03/23/21 08:15 25 MG Vital Signs/I&O 03/23/21 03/23/21 07:43 08:00 Temp 36.6 Pulse 68 65 67 Resp 18 B/P (MAP) 143/76 (98) 143/74 (97) 165/104 (124) Pulse Ox 99 Capillary Refill : Progress Note : Time: 09:00 Progress Note Patient re-evaluated after meclizine and about 900cc of first liter of fluids, she is able to sit up without much problem and says that she feels SO MUCH better. Has a slight headache but severe dizziness is resolved. WIll go ahead and order a second liter of fluids - as her CO2 on her chem was depressed at 20, and I suspect a fair amount of dehydration due to the recent robert with diarrhea. SHe is comfortable with this plan of care. Has a follow up with her PCP later in the week. ECG Initial ECG Impression Date: Mar 23, 2021 Initial ECG Impression Time: 07:57 Initial ECG Rate: 62 Initial ECG Intervals ID [id number] QRS 108 QTc 453 Initial ECG Impression: Normal, Nonspecific Changes Departure Impression Primary Impression: Dizziness Additional Impression: Dehydration, moderate Disposition: 01 HOME, SELF-CARE Condition: Stable Departure-Patient Inst. Decision time for Depature: 09:04 Referrals: BUTCH RODRÍGUEZ MD (PCP/Family) Primary Care Physician Patient Instructions: Dizziness, Adult ED Add. Discharge Instructions: Drink plenty of fluids to stay well hydrated. Continue your daily medications as prescribed (including your nystatin). Keep your follow up with your primary care provider this week. Come back to the Emergency Department for any new, concerning or emergent complaints. LASHAWN ABBASI MD Mar 23, 2021 07:58
[2021-03-23 08:00] VITALS: BP_SYST 143; BP_SYST 165; BP_DIAS 104; BP_DIAS 74
[2021-03-23] MEDS ORDERED: NS IV 1000 ML 1,000 ML IV STA (08:06)
[2021-03-23 08:10] LABS: BASOPHILS % (AUTO) 1 % (0-10); EOSINOPHILS # (AUTO) 0.1 10^3/uL (0.0-0.3); EOSINOPHILS % (AUTO) 2 % (0-10); HEMATOCRIT 42 % (35-52); LYMPHOCYTES # (AUTO) 1.4 10^3/uL (1.0-4.0); LYMPHOCYTES % (AUTO) 25 % (12-44); MEAN CORPUSCULAR HEMOGLOBIN 32 pg (25-34); MEAN CORPUSCULAR HGB CONC 33 g/dL (32-36); MEAN CORPUSCULAR VOLUME 96 fL (80-99); MEAN PLATELET VOLUME 8.9 fL (9.0-12.2); MONOCYTES # (AUTO) 0.6 10^3/uL (0.0-1.0); MONOCYTES % (AUTO) 11 % (0-12); NEUTROPHILS # (AUTO) 3.4 10^3/uL (1.8-7.8); NEUTROPHILS % (AUTO) 60 % (42-75); PLATELET COUNT 318 10^3/uL (130-400); WHITE BLOOD COUNT 5.6 10^3/uL (4.3-11.0)
[2021-03-23] MEDS ORDERED: MECLIZINE 25 MG (ANTIVERT) TAB PO ONE (08:15)
[2021-03-23 08:21] LABS: CALCIUM 9.3 MG/DL (8.5-10.1)
[2021-03-23 08:25] LABS: CREATININE SERUM 0.64 MG/DL (0.60-1.30)
[2021-03-23 08:33] LABS: POTASSIUM 5.2 MMOL/L (3.6-5.0)
[2021-03-23] MEDS ORDERED: ACETAMINOPHEN 500 MG TAB (TYLENOL) PO ONE (09:15)
[2021-03-23] MEDS ORDERED: NS IV 1000 ML 1,000 ML IV SCH (09:15)
[2021-03-23 10:01] VITALS: BP 148/78
== END 2021-03-23 11:18 | disposition home or self-care (01) ==
LOC: EDUNIT# 07:38 → ER 07:41
DX: R42 Dizziness and giddiness (principal); E86.0 Dehydration
CPT/HCPCS: 36415; 80048; 85025; 93005

== ENCOUNTER 2021-04-14 09:44 | Outpatient (RCR) | payer MEDICARE, OTHER ==
[2021-04-14 10:07] LABS: BASOPHILS % (AUTO) 0 % (0-10); EOSINOPHILS # (AUTO) 0.1 10^3/uL (0.0-0.3); EOSINOPHILS % (AUTO) 2 % (0-10); HEMATOCRIT 42 % (35-52); HEMOGLOBIN 13.8 g/dL (11.5-16.0); LYMPHOCYTES # (AUTO) 1.4 10^3/uL (1.0-4.0); LYMPHOCYTES % (AUTO) 19 % (12-44); MEAN CORPUSCULAR HEMOGLOBIN 32 pg (25-34); MEAN CORPUSCULAR HGB CONC 33 g/dL (32-36); MEAN CORPUSCULAR VOLUME 95 fL (80-99); MEAN PLATELET VOLUME 8.5 fL (9.0-12.2); MONOCYTES % (AUTO) 14 % (0-12); NEUTROPHILS # (AUTO) 4.6 10^3/uL (1.8-7.8); NEUTROPHILS % (AUTO) 65 % (42-75); PLATELET COUNT 321 10^3/uL (130-400); WHITE BLOOD COUNT 7.1 10^3/uL (4.3-11.0)
[2021-04-14 10:24] LABS: ERYTHROCYTE SEDIMENTATION RATE 13 MM/HR (0-30)
[2021-04-14 10:32] LABS: ALBUMIN 4.1 GM/DL (3.2-4.5); BILIRUBIN,TOTAL 0.4 MG/DL (0.1-1.0); CALCIUM 9.5 MG/DL (8.5-10.1); CREATININE SERUM 0.66 MG/DL (0.60-1.30); POTASSIUM 4.2 MMOL/L (3.6-5.0); TOTAL PROTEIN 7.1 GM/DL (6.4-8.2)
== END 2021-05-15 | disposition home or self-care (01) ==
LOC: RAD 09:44
PROVIDERS: ATTEND Internal Medicine Infectious Disease
DX: T81.30XA Disruption of wound, unspecified, initial encounter (principal); Z79.899 Other long term (current) drug therapy
CPT/HCPCS: 36415; 80053; 85025; 85652; 86141; 93005

== ENCOUNTER 2021-05-08 08:21 | Outpatient (RCR) | payer MEDICARE, OTHER ==
[2021-05-08 08:55] LABS: BASOPHILS % (AUTO) 1 % (0-10); EOSINOPHILS # (AUTO) 0.2 10^3/uL (0.0-0.3); EOSINOPHILS % (AUTO) 2 % (0-10); HEMATOCRIT 42 % (35-52); HEMOGLOBIN 14.2 g/dL (11.5-16.0); LYMPHOCYTES # (AUTO) 1.2 10^3/uL (1.0-4.0); LYMPHOCYTES % (AUTO) 13 % (12-44); MEAN CORPUSCULAR HEMOGLOBIN 32 pg (25-34); MEAN CORPUSCULAR HGB CONC 34 g/dL (32-36); MEAN CORPUSCULAR VOLUME 95 fL (80-99); MEAN PLATELET VOLUME 8.6 fL (9.0-12.2); MONOCYTES # (AUTO) 1.4 10^3/uL (0.0-1.0); MONOCYTES % (AUTO) 16 % (0-12); NEUTROPHILS % (AUTO) 69 % (42-75); PLATELET COUNT 314 10^3/uL (130-400); WHITE BLOOD COUNT 8.8 10^3/uL (4.3-11.0)
[2021-05-08 09:08] LABS: ALBUMIN 4.3 GM/DL (3.2-4.5)
[2021-05-08 09:09] LABS: POTASSIUM 3.9 MMOL/L (3.6-5.0)
[2021-05-08 09:10] LABS: CALCIUM 9.8 MG/DL (8.5-10.1)
[2021-05-08 09:11] LABS: TOTAL PROTEIN 7.7 GM/DL (6.4-8.2)
[2021-05-08 09:13] LABS: BILIRUBIN,TOTAL 0.4 MG/DL (0.1-1.0)
[2021-05-08 09:15] LABS: CREATININE SERUM 0.65 MG/DL (0.60-1.30)
[2021-05-08 09:25] LABS: ERYTHROCYTE SEDIMENTATION RATE 43 MM/HR (0-30)
== END 2021-05-15 | disposition home or self-care (01) ==
LOC: CARD 08:21
PROVIDERS: ATTEND Internal Medicine Infectious Disease
DX: T81.30XA Disruption of wound, unspecified, initial encounter (principal); Z79.899 Other long term (current) drug therapy
CPT/HCPCS: 36415; 80053; 85025; 85652; 86141; 93005

== ENCOUNTER → 2021-06-09 | Outpatient (CLI) | payer MEDICARE, OTHER ==
[2021-06-09 11:56] LABS: BASOPHILS % (AUTO) 1 % (0-10); EOSINOPHILS # (AUTO) 0.4 10^3/uL (0.0-0.3); EOSINOPHILS % (AUTO) 5 % (0-10); HEMATOCRIT 41 % (35-52); HEMOGLOBIN 13.7 g/dL (11.5-16.0); LYMPHOCYTES # (AUTO) 1.6 10^3/uL (1.0-4.0); LYMPHOCYTES % (AUTO) 24 % (12-44); MEAN CORPUSCULAR HEMOGLOBIN 32 pg (25-34); MEAN CORPUSCULAR HGB CONC 33 g/dL (32-36); MEAN CORPUSCULAR VOLUME 97 fL (80-99); MEAN PLATELET VOLUME 8.7 fL (9.0-12.2); MONOCYTES # (AUTO) 0.7 10^3/uL (0.0-1.0); MONOCYTES % (AUTO) 11 % (0-12); NEUTROPHILS # (AUTO) 3.8 10^3/uL (1.8-7.8); NEUTROPHILS % (AUTO) 59 % (42-75); PLATELET COUNT 318 10^3/uL (130-400); WHITE BLOOD COUNT 6.6 10^3/uL (4.3-11.0)
[2021-06-09 12:17] LABS: ALBUMIN 4.1 GM/DL (3.2-4.5); BILIRUBIN,TOTAL 0.3 MG/DL (0.1-1.0); CALCIUM 9.7 MG/DL (8.5-10.1); CREATININE SERUM 0.71 MG/DL (0.60-1.30); POTASSIUM 3.7 MMOL/L (3.6-5.0); TOTAL PROTEIN 6.8 GM/DL (6.4-8.2)
[2021-06-09 12:34] LABS: ERYTHROCYTE SEDIMENTATION RATE 12 MM/HR (0-30)
== END ==
LOC: RAD 11:26
PROVIDERS: ATTEND Internal Medicine Infectious Disease
DX: T81.30XA Disruption of wound, unspecified, initial encounter (principal); Z79.899 Other long term (current) drug therapy
CPT/HCPCS: 36415; 80053; 85025; 85652; 86141; 93005

== ENCOUNTER 2021-06-25 10:08 | Emergency (ER) | payer MEDICARE, OTHER ==
[~2021-06-25] VITALS: Ht 160 cm; Wt 92.9 kg
[2021-06-25 10:47] LABS: BASOPHILS % (AUTO) 0 % (0-10); EOSINOPHILS # (AUTO) 0.2 10^3/uL (0.0-0.3); EOSINOPHILS % (AUTO) 4 % (0-10); HEMATOCRIT 40 % (35-52); HEMOGLOBIN 13.2 g/dL (11.5-16.0); LYMPHOCYTES # (AUTO) 1.3 10^3/uL (1.0-4.0); LYMPHOCYTES % (AUTO) 22 % (12-44); MEAN CORPUSCULAR HEMOGLOBIN 32 pg (25-34); MEAN CORPUSCULAR HGB CONC 33 g/dL (32-36); MEAN CORPUSCULAR VOLUME 98 fL (80-99); MEAN PLATELET VOLUME 8.9 fL (9.0-12.2); MONOCYTES # (AUTO) 0.9 10^3/uL (0.0-1.0); MONOCYTES % (AUTO) 16 % (0-12); NEUTROPHILS # (AUTO) 3.3 10^3/uL (1.8-7.8); NEUTROPHILS % (AUTO) 57 % (42-75); PLATELET COUNT 317 10^3/uL (130-400); WHITE BLOOD COUNT 5.7 10^3/uL (4.3-11.0)
--- NOTE | 2021-06-25 10:47 | ED General ---
General Chief Complaint: Dizziness/Syncope Stated Complaint: DIZZINESS Nursing Triage Note: PT TO [facility] BY [facility] FROM HOME WITH COMPLAINT OF DIZZINESS. STATES HAS HAD HILDA MANUEVER DONE A FEW TIMES IN THE LAST WEEK. 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 Source of Information: Patient, Family (daughter) Exam Limitations: No Limitations History of Present Illness Date Seen by Provider: Jun 25, 2021 Time Seen by Provider: 10:30 Initial Comments Patient is a 65-year-old female who presents to the emergency department today with a chief complaint of feeling very dizzy and concerned she might fall at home. Patient has been battling this dizziness over the course of the last week. She states her physical therapist perform the Hilda maneuver on her at physical therapy on Tuesday of this week. She states she did not have much relief until Tuesday and then symptoms recurred. She states on Tuesday they continued and then this morning she got up and they were much more severe. She did take 1 meclizine prior to arrival and shortly afterward took a second 1. She was slightly nauseated with the dizziness. She has had a bit of diarrhea over the past couple of days. Continuing to recover from back surgery with woun d infections treated at . She has diarrhea intermittently. She denies any urinary complaints. No recent fevers or chills. No Covid symptoms. No chest pain or shortness of breath. No vision changes. No unilateral weakness numbness or tingling. She did not have a fall today. She did have a fall a couple of weeks ago and sustained an elbow injury. This abrasion is healing. She is not on blood thinners. She has not hit her head. Patient states actually as I am examining her and she has nearly completed 800 cc of IV fluids per EMS that she is feeling much better. Patient states she is not really been drinking as much water as she should be. She thinks she may have had too much salt last night. She is wondering if her symptoms are as a result of some mild dehydration. She has not ever seen an ENT for her dizzy spells. I saw her several months ago with similar complaints. Meclizine seems to work for her pretty well. Timing/Duration: 3-4 Days Severity: Moderate Modifying Factors: worse with Movement Associated Systoms: Nausea/Vomiting, Weakness Allergies and Home Medications Allergies Coded Allergies: tramadol (Verified Allergy, Mild, Vomiting, 6/5/21) codeine (Verified Allergy, Unknown, 09/28/20) Patient Home Medication List Home Medication List Reviewed: Yes Bupropion HCl (Bupropion HCl) 75 Mg Tablet, 75 MG PO DAILY, (Reported) Entered as Reported by: SAVANAH VIERA on 05/09/16915 Fluticasone/Salmeterol (Advair 500-50 Diskus) 1 Each Blst.w.dev, 1 EACH IH BID, (Reported) Entered as Reported by: SAVANAH VIERA on 05/09/16913 Gabapentin (Gabapentin) 300 Mg Capsule, Unknown Dose PO TID, (Reported) Entered as Reported by: SAVANAH VIERA on 05/09/16915 Meloxicam (Meloxicam) 15 Mg Tablet, 15 MG PO DAILY, (Reported) Entered as Reported by: SAVANAH VIERA on 05/09/16915 Tiotropium [place] (Spiriva) 1 Inh Aerp, 1 INH IH BID, (Reported) Entered as Reported by: SAVANAH VIERA on 05/09/16913 Review of Systems Review of Systems Constitutional: see HPI EENTM: no symptoms reported Respiratory: no symptoms reported Cardiovascular: no symptoms reported Gastrointestinal: nausea (mild) Genitourinary: no symptoms reported : No Musculoskeletal: no symptoms reported Skin: no symptoms reported Psychiatric/Neurological: Other (dizziness, weakness) Past Dghrbkj-Warwmu-Pcyjxh Hx Patient Social History Tobacco Use?: No Use of E-Cig and/or Vaping dev: No Substance use?: No Alcohol Use?: Yes Alcohol Frequency: Rarely Pt feels they are or have been: No Immunizations Up To Date Influenza Vaccine Up-to-Date: Yes; Up-to-Date First/Initial COVID19 Vaccinat: RECENT Second COVID19 Vaccination [place]: RECENT Third COVID19 Vaccination Date: RECENT Physical Exam Vital Signs Vital Signs - First Documented 06/25/21 10:08 Pulse 62 Resp 18 B/P (MAP) 141/79 (99) Pulse Ox 98 O2 Delivery Room Air Capillary Refill : Less Than 3 Seconds Height, Weight, BMI Height: 5'4" Weight: 250lbs. oz. [id number]; 36.00 BMI Method:Stated General Appearance: No Apparent Distress, WD/WN Eyes: Bilateral Eye Normal Inspection, Bilateral Eye PERRL, Bilateral Eye EOMI HEENT: TMs Normal (opaque bilaterally - not clear - but not distended, no visible effusion), Normal ENT Inspection, Pharynx Normal Neck: Full Range of Motion, Normal Inspection, Non Tender, Supple Respiratory: Lungs Clear, Normal Breath Sounds, No Accessory Muscle Use, No Respiratory Distress Cardiovascular: Regular Rate, Rhythm (low 60's), No Murmur, Normal Peripheral Pulses Gastrointestinal: Normal Bowel Sounds, Non Tender, Soft Extremity: Normal Capillary Refill, Normal Inspection, Normal Range of Motion, Non Tender, No Calf Tenderness Neurologic/Psychiatric: Alert, Oriented x3, No Motor/Sensory Deficits, Normal Mood/Affect, leader assembler II-XII Norm as Tested, Other (normal finger to nose, neg Romberg - normal strength and sensation/ No Nystagmus) Skin: Normal Color, Warm/Dry, Other ((healing abrasion to the right elbow)) Progress/Results/Core Measures Suspected Sepsis SIRS Temperature: Pulse: 62 Respiratory Rate: 18 Laboratory Tests 06/25/21 10:10: White Blood Count 5.7 Blood Pressure 141 /79 Mean: 99 Laboratory Tests 06/25/21 10:10: Creatinine 0.66, Platelet Count 317 Results/Orders Lab Results Laboratory Tests Test 06/25/21 10:10 Range/Units White Blood Count 5.7 4.3-11.0 10^3/uL Red Blood Count 4.11 3.80-5.11 10^6/uL Hemoglobin 13.2 11.5-16.0 g/dL Hematocrit 40 35-52 % Mean Corpuscular Volume 98 80-99 fL Mean Corpuscular Hemoglobin 32 25-34 pg Mean Corpuscular Hemoglobin Concent 33 32-36 g/dL Red Cell Distribution Width 13.0 10.0-14.5 % Platelet Count 317 130-400 10^3/uL Mean Platelet Volume 8.9 L 9.0-12.2 fL Immature Granulocyte % (Auto) 0 % Neutrophils (%) (Auto) 57 42-75 % Lymphocytes (%) (Auto) 22 12-44 % Monocytes (%) (Auto) 16 H 0-12 % Eosinophils (%) (Auto) 4 0-10 % Basophils (%) (Auto) 0 0-10 % Neutrophils # (Auto) 3.3 1.8-7.8 10^3/uL Lymphocytes # (Auto) 1.3 1.0-4.0 10^3/uL Monocytes # (Auto) 0.9 0.0-1.0 10^3/uL Eosinophils # (Auto) 0.2 0.0-0.3 10^3/uL Basophils # (Auto) 0.0 0.0-0.1 10^3/uL Immature Granulocyte # (Auto) 0.0 0.0-0.1 10^3/uL Sodium Level 135 135-145 MMOL/L Potassium Level 4.3 3.6-5.0 MMOL/L Chloride Level 103 98-107 MMOL/L Carbon Dioxide Level 20 L 21-32 MMOL/L Anion Gap 12 5-14 MMOL/L Blood Urea Nitrogen 18 7-18 MG/DL Creatinine 0.66 0.60-1.30 MG/DL Estimat Glomerular Filtration Rate 96 BUN/Creatinine Ratio 27 Glucose Level 102 70-105 MG/DL Calcium Level 9.4 8.5-10.1 MG/DL My Orders Orders - LASHAWN ABBASI MD Ed Iv/Invasive Line Start (06/25/21 10:42) Cbc With Automated Diff (06/25/21 10:42) Basic Metabolic Panel (06/25/21 10:42) Vital Signs/I&O 06/25/21 10:08 Pulse 62 Resp 18 B/P (MAP) 141/79 (99) Pulse Ox 98 O2 Delivery Room Air Capillary Refill : Less Than 3 Seconds Blood Pressure Mean: 99 Progress Note : Time: 11:41 Progress Note She continues to feel improvement, now her fluids are completed. She is eager to be discharged. She did ask for another meclizine tablet I told her that she needs to wait about 3 more hours or so before she takes another 1. I advised she can take it up to every 6 hours throughout the day. I also encouraged ENT follow-up. Continued fluid hydration. Monitor for further symptoms. Follow-up with her primary care. Both she and her daughter are comfortable with plan of care. All questions are sought and answered. Departure Impression Primary Impression: Dizziness Disposition: 01 HOME, SELF-CARE Condition: Improved Departure-Patient Inst. Decision time for Depature: 11:03 Referrals: BLANE CORREA MD, SAMUEL MD (PCP) Primary Care Physician Patient Instructions: Dizziness, Adult ED Add. Discharge Instructions: Drink plenty of fluids to stay well-hydrated. You might consider an electrolyte replacement solution -even adult Pedialyte. Continue your daily medications as previously prescribed. You can take your meclizine over the next couple of days every 6 hours as needed for dizzy spells. Be very careful when getting up out of a chair or out of bed that you establish her balance before moving around to help prevent falls. Please follow-up with Dr. Damon next week. I have given you contact information for Dr. Correa here in [place], he is our local ENT doctor. Return to the emergency department for any new, concerning or emergent complaints LASHAWN ABBASI MD Jun 25, 2021 10:47
[2021-06-25 11:06] LABS: CALCIUM 9.4 MG/DL (8.5-10.1); CREATININE SERUM 0.66 MG/DL (0.60-1.30)
[2021-06-25 11:07] LABS: POTASSIUM 4.3 MMOL/L (3.6-5.0)
[2021-06-25 12:14] VITALS: BP 116/91
== END 2021-06-25 12:14 | disposition home or self-care (01) ==
LOC: EDUNIT# 10:08 → ER 10:09
DX: R42 Dizziness and giddiness (principal)
CPT/HCPCS: 36415; 80048; 85025

== ENCOUNTER → 2021-07-14 | Outpatient (CLI) | payer MEDICARE, OTHER ==
[2021-07-14 10:49] LABS: BASOPHILS % (AUTO) 1 % (0-10); EOSINOPHILS # (AUTO) 0.1 10^3/uL (0.0-0.3); EOSINOPHILS % (AUTO) 2 % (0-10); HEMATOCRIT 42 % (35-52); HEMOGLOBIN 13.8 g/dL (11.5-16.0); LYMPHOCYTES # (AUTO) 1.5 10^3/uL (1.0-4.0); LYMPHOCYTES % (AUTO) 23 % (12-44); MEAN CORPUSCULAR HEMOGLOBIN 32 pg (25-34); MEAN CORPUSCULAR HGB CONC 33 g/dL (32-36); MEAN CORPUSCULAR VOLUME 98 fL (80-99); MEAN PLATELET VOLUME 8.7 fL (9.0-12.2); MONOCYTES # (AUTO) 0.8 10^3/uL (0.0-1.0); MONOCYTES % (AUTO) 13 % (0-12); NEUTROPHILS # (AUTO) 3.9 10^3/uL (1.8-7.8); NEUTROPHILS % (AUTO) 62 % (42-75); PLATELET COUNT 320 10^3/uL (130-400); WHITE BLOOD COUNT 6.4 10^3/uL (4.3-11.0)
[2021-07-14 11:07] LABS: ALBUMIN 4.2 GM/DL (3.2-4.5); BILIRUBIN,TOTAL 0.4 MG/DL (0.1-1.0); CALCIUM 9.5 MG/DL (8.5-10.1); CREATININE SERUM 0.75 MG/DL (0.60-1.30); POTASSIUM 3.9 MMOL/L (3.6-5.0); TOTAL PROTEIN 6.8 GM/DL (6.4-8.2)
[2021-07-14 11:29] LABS: ERYTHROCYTE SEDIMENTATION RATE 12 MM/HR (0-30)
== END ==
LOC: CARD 10:30
PROVIDERS: ATTEND Internal Medicine Infectious Disease
DX: T81.30XA Disruption of wound, unspecified, initial encounter (principal); Z79.2 Long term (current) use of antibiotics
CPT/HCPCS: 36415; 80053; 85025; 85652; 86141; 93005

== ENCOUNTER → 2021-08-17 | Outpatient (CLI) | payer MEDICARE, OTHER ==
[2021-08-17 13:59] LABS: BASOPHILS # (AUTO) 0.1 10^3/uL (0.0-0.1); BASOPHILS % (AUTO) 1 % (0-10); EOSINOPHILS # (AUTO) 0.2 10^3/uL (0.0-0.3); EOSINOPHILS % (AUTO) 3 % (0-10); HEMATOCRIT 44 % (35-52); HEMOGLOBIN 14.4 g/dL (11.5-16.0); LYMPHOCYTES # (AUTO) 1.9 10^3/uL (1.0-4.0); LYMPHOCYTES % (AUTO) 24 % (12-44); MEAN CORPUSCULAR HEMOGLOBIN 32 pg (25-34); MEAN CORPUSCULAR HGB CONC 33 g/dL (32-36); MEAN CORPUSCULAR VOLUME 98 fL (80-99); MEAN PLATELET VOLUME 8.8 fL (9.0-12.2); MONOCYTES # (AUTO) 0.8 10^3/uL (0.0-1.0); MONOCYTES % (AUTO) 10 % (0-12); NEUTROPHILS % (AUTO) 62 % (42-75); PLATELET COUNT 292 10^3/uL (130-400)
[2021-08-17 14:21] LABS: ERYTHROCYTE SEDIMENTATION RATE 16 MM/HR (0-30)
[2021-08-17 14:24] LABS: ALBUMIN 4.3 GM/DL (3.2-4.5); POTASSIUM 3.6 MMOL/L (3.6-5.0)
[2021-08-17 14:25] LABS: CALCIUM 9.6 MG/DL (8.5-10.1)
[2021-08-17 14:26] LABS: TOTAL PROTEIN 7.2 GM/DL (6.4-8.2)
[2021-08-17 14:28] LABS: BILIRUBIN,TOTAL 0.4 MG/DL (0.1-1.0)
[2021-08-17 14:30] LABS: CREATININE SERUM 0.7 MG/DL (0.60-1.30)
== END ==
LOC: CARD 13:44
PROVIDERS: ATTEND Internal Medicine Infectious Disease
DX: T81.30XA Disruption of wound, unspecified, initial encounter (principal); Z79.899 Other long term (current) drug therapy
CPT/HCPCS: 36415; 80053; 85025; 85652; 86141; 93005

== ENCOUNTER → 2021-09-16 | Outpatient (CLI) | payer MEDICARE, OTHER ==
[2021-09-16 09:35] LABS: BASOPHILS % (AUTO) 0 % (0-10); EOSINOPHILS # (AUTO) 0.3 10^3/uL (0.0-0.3); EOSINOPHILS % (AUTO) 4 % (0-10); HEMATOCRIT 40 % (35-52); HEMOGLOBIN 13.4 g/dL (11.5-16.0); LYMPHOCYTES # (AUTO) 1.3 10^3/uL (1.0-4.0); LYMPHOCYTES % (AUTO) 19 % (12-44); MEAN CORPUSCULAR HEMOGLOBIN 33 pg (25-34); MEAN CORPUSCULAR HGB CONC 34 g/dL (32-36); MEAN CORPUSCULAR VOLUME 97 fL (80-99); MEAN PLATELET VOLUME 8.6 fL (9.0-12.2); MONOCYTES # (AUTO) 0.8 10^3/uL (0.0-1.0); MONOCYTES % (AUTO) 13 % (0-12); NEUTROPHILS # (AUTO) 4.3 10^3/uL (1.8-7.8); NEUTROPHILS % (AUTO) 64 % (42-75); PLATELET COUNT 321 10^3/uL (130-400); WHITE BLOOD COUNT 6.7 10^3/uL (4.3-11.0)
[2021-09-16 09:53] LABS: ALBUMIN 4.1 GM/DL (3.2-4.5); BILIRUBIN,TOTAL 0.5 MG/DL (0.1-1.0); CALCIUM 9.4 MG/DL (8.5-10.1); CREATININE SERUM 0.79 MG/DL (0.60-1.30); POTASSIUM 4.2 MMOL/L (3.6-5.0); TOTAL PROTEIN 6.7 GM/DL (6.4-8.2)
[2021-09-16 10:08] LABS: ERYTHROCYTE SEDIMENTATION RATE 15 MM/HR (0-30)
== END ==
LOC: CARD 09:30
PROVIDERS: ATTEND Internal Medicine Infectious Disease
DX: T81.30XA Disruption of wound, unspecified, initial encounter (principal); Z79.899 Other long term (current) drug therapy; Z79.2 Long term (current) use of antibiotics
CPT/HCPCS: 36415; 80053; 85025; 85652; 86141; 93005

== ENCOUNTER → 2021-10-16 | Outpatient (CLI) | payer MEDICARE, OTHER ==
[2021-10-16 14:16] LABS: BASOPHILS % (AUTO) 0 % (0-10); EOSINOPHILS # (AUTO) 1.3 10^3/uL (0.0-0.3); EOSINOPHILS % (AUTO) 13 % (0-10); HEMATOCRIT 40 % (35-52); HEMOGLOBIN 13.4 g/dL (11.5-16.0); LYMPHOCYTES # (AUTO) 1.8 10^3/uL (1.0-4.0); LYMPHOCYTES % (AUTO) 19 % (12-44); MEAN CORPUSCULAR HEMOGLOBIN 33 pg (25-34); MEAN CORPUSCULAR HGB CONC 33 g/dL (32-36); MEAN CORPUSCULAR VOLUME 98 fL (80-99); MEAN PLATELET VOLUME 8.8 fL (9.0-12.2); MONOCYTES # (AUTO) 0.9 10^3/uL (0.0-1.0); MONOCYTES % (AUTO) 9 % (0-12); NEUTROPHILS # (AUTO) 5.4 10^3/uL (1.8-7.8); NEUTROPHILS % (AUTO) 58 % (42-75); PLATELET COUNT 309 10^3/uL (130-400); WHITE BLOOD COUNT 9.4 10^3/uL (4.3-11.0)
[2021-10-16 14:39] LABS: ALBUMIN 4.1 GM/DL (3.2-4.5); BILIRUBIN,TOTAL 0.2 MG/DL (0.1-1.0); CALCIUM 9.6 MG/DL (8.5-10.1); CREATININE SERUM 0.71 MG/DL (0.60-1.30); POTASSIUM 4.1 MMOL/L (3.6-5.0)
[2021-10-16 14:40] LABS: BAND NEUTROPHILS 1 %; BASOPHILS % (MANUAL) 0 %; EOSINOPHILS % (MANUAL) 12 %; ERYTHROCYTE SEDIMENTATION RATE 11 MM/HR (0-30); LYMPHOCYTES % (MANUAL) 20 %; MONOCYTES % (MANUAL) 5 %; NEUTROPHILS % (MANUAL) 62 %; RBC MORPH NORMAL
== END ==
LOC: CARD 14:30
PROVIDERS: ATTEND Internal Medicine Infectious Disease
DX: T81.30XA Disruption of wound, unspecified, initial encounter (principal); Z79.899 Other long term (current) drug therapy; Z79.2 Long term (current) use of antibiotics
CPT/HCPCS: 36415; 80053; 85007; 85027; 85652; 86141; 93005